=== PATIENT | male | born 1965 | race Caucasian/White ===

== ENCOUNTER 2018-12-04 13:27 | Emergency (ER) | payer MEDICAID ==
[~2018-12-04] VITALS: Ht 182.9 cm; Wt 64.0 kg
--- NOTE | 2018-12-04 15:01 | NUR ---
PIECE OF MEAT STUCK IN THROAT SINCE FIVE OCLOCK PM YESTERDAY
[2018-12-04] MEDS ORDERED: ondansetron/PF 4mg/2ml inj IV ONE (15:30)
[2018-12-04] MEDS ORDERED: normal saline 1000ML IV soln IVB ONE (15:30)
[2018-12-04] MEDS ORDERED: glucagon, human recombinant 1mg kit IV ONE (15:30)
[2018-12-04] MEDS ORDERED: LORazepam 2 mg/ml vial IV ONE (15:30)
[2018-12-04] MEDS ORDERED: ESOMEPRAZOLE 40 MG VIAL IV STA (15:42)
[2018-12-04] MEDS ORDERED: pantoprazole 40 MG vial IV ONE (15:45)
[2018-12-04 16:30] VITALS: BP 141/91
[2018-12-04] MEDS ORDERED: fentaNYL/PF 50MCG/1 ML 2ML syringe ONE (17:35)
[2018-12-04] MEDS ORDERED: MIDAZolam 5mg/5ml vial ONE (17:35)
[2018-12-04] MEDS ORDERED: LIDOcaine Viscous 15ml cup ONE (17:35)
[2018-12-04 18:29] VITALS: BP 147/93
[2018-12-04 18:39] VITALS: BP 142/93
[2018-12-04 18:49] VITALS: BP 130/92
[2018-12-04 18:59] VITALS: BP 134/88
[2018-12-04] MEDS ORDERED: OMEP40CA37 PO (22:00)
[2018-12-04 22:18] VITALS: BP 138/84
== END 2018-12-04 22:20 | disposition home or self-care (01) ==
LOC: ER 13:30
DX: T18.128A Food in esophagus causing other injury, initial encounter (principal); F15.90 Other stimulant use, unspecified, uncomplicated; Z59.0 Homelessness; Z56.0 Unemployment, unspecified; Z88.0 Allergy status to penicillin; Y92.89 Other specified places as the place of occurrence of the external cause
CPT/HCPCS: 43239; 43247; 96361; 96374; 96375; 99152; 99153; 99285; C9113; J1610; J2060; J2250; J2405; J3010; J7030; A4620